=== PATIENT | male | born 1960 | race African-American/Black ===

== ENCOUNTER → 2016-09-23 | Outpatient (CLI) | payer OTHER ==
[~2016-09-23] MED LIST: CHILD ASPIRIN81 M1 PO; CORLANOR5 MG PO; K-DUR10 MEQ PO; LASIX40 MG PO; LISINOPRIL2.5 MG PO; PLAVIX75 MG PO; PROTONIX40 MG PO; TOPROL XL100 MG PO; ULORIC80 MG PO
== END | disposition home or self-care (01) ==
LOC: NUC 07:45
DX: E07.89 Other specified disorders of thyroid (principal); E55.9 Vitamin D deficiency, unspecified
CPT/HCPCS: 78072; A9500; A9512

== ENCOUNTER 2017-02-03 16:13 | Inpatient (IN) | payer OTHER ==
[~2017-02-03] VITALS: Ht 175.3 cm; Wt 95.7 kg
[~2017-02-03 16:13] MED LIST changes: -TOPROL XL100 MG PO; +TOPROL XL200 MG PO
[2017-02-03 16:58] LABS: HEMATOCRIT 45.4 % (38.0-50.0); MCH 28.7 PG (29.0-34.0); MCHC 32.2 G/DL (30.0-36.0); MCV 89.4 FL (86-99); MEAN PLAT.VOLUME 11.6 uM^3 (9.0-12.4); PLATELET COUNT 147 K/uL (156-360); RBC DIS.WIDTH-SD 49.2 % (39-53); RED BLOOD COUNT 5.08 M/uL (4.00-5.50); WHITE BLOOD COUNT 4.5 K/uL (4.1-10.2)
[2017-02-03 17:06] LABS: CHLORIDE 102 mEq/L (99-109); POTASSIUM 5.4 mEq/L (3.7-5.4); SODIUM 136 mEq/L (136-147)
[2017-02-03 17:08] LABS: GLUCOSE 120 mg/dL (70-99)
[2017-02-03 17:10] LABS: ANION GAP 12 MEQ/L (2-14)
[2017-02-03 17:12] LABS: GFR ESTIMATE (CALCULATED) 24 mL/min/ (58.99-99999)
[2017-02-03 17:13] LABS: UREA NITROGEN (BUN) 94 mg/dL (9-23)
[2017-02-03 17:18] LABS: TROP-I INTERPRETATION POSITIVE
[2017-02-03 17:24] LABS: TROPONIN-I 4.45 ng/mL (0.0-0.30)
[2017-02-03] MEDS ORDERED: LASIX40 MG PO (17:42)
[2017-02-03] MEDS ORDERED: CALCITRIOL0.25 MCG PO (17:43)
[2017-02-03] MEDS ORDERED: METOLAZONE2.5 MG PO (17:43)
[2017-02-03] MEDS ORDERED: ATORVASTATIN CA40 MG PO (17:44)
[2017-02-03 18:19] LABS: INTER. NORMALIZED RATIO 1.3; PROTHROMBIN TIME 14.6 SEC (10.2-12.9)
[2017-02-03 18:22] LABS: PTT 32.9 SEC (25-37)
[2017-02-03 19:45] VITALS: BP 98/61
[2017-02-03 20:32] LABS: TOTAL BILIRUBIN 1.6 mg/dL (0.0-1.0)
[2017-02-03 20:33] LABS: ALKALINE PHOSPHATASE 154 IU/L (3-129)
[2017-02-03 22:53] LABS: AMYLASE 106 IU/L (1-118)
[2017-02-03 23:02] LABS: LIPASE 24 U/L (1.0-51.0)
[2017-02-03 23:20] VITALS: BP 99/70
[2017-02-03 23:24] LABS: GAMMA-GT 159 IU/L (4-73)
[2017-02-03 23:31] LABS: SAMPLE HEMOLYSIS CHECK 0; SAMPLE ICTERIC CHECK 0; SAMPLE LIPEMIA CHECK 0
[2017-02-04 00:01] LABS: TROP-I INTERPRETATION POSITIVE
[2017-02-04 00:09] LABS: TROPONIN-I 4.48 ng/mL (0.0-0.30)
[2017-02-04 01:05] LABS: INTER. NORMALIZED RATIO 1.4; PROTHROMBIN TIME 16.3 SEC (10.2-12.9)
[2017-02-04 01:22] LABS: PTT 163.1 SEC (25-37)
[2017-02-04 04:00] VITALS: BP 94/69
[2017-02-04 08:16] LABS: MCHC 31.6 G/DL (30.0-36.0); MCV 91.7 FL (86-99); MEAN PLAT.VOLUME 11.6 uM^3 (9.0-12.4); PLATELET COUNT 131 K/uL (156-360); RBC DIS.WIDTH-CV 15.3 % (11.8-14.6); RBC DIS.WIDTH-SD 51.1 % (39-53); WHITE BLOOD COUNT 4.8 K/uL (4.1-10.2)
[2017-02-04 08:27] LABS: TROP-I INTERPRETATION POSITIVE; TROPONIN-I 4.93 ng/mL (0.0-0.30)
[2017-02-04 08:41] LABS: ANION GAP 11 MEQ/L (2-14); CHLORIDE 103 MEQ/L (99-109); GFR ESTIMATE (CALCULATED) 24 mL/min/ (58.99-99999); GLUCOSE 99 mg/dL (70-99); POTASSIUM 5.9 MEQ/L (3.7-5.4); SAMPLE HEMOLYSIS CHECK 0; SAMPLE ICTERIC CHECK 0; SAMPLE LIPEMIA CHECK 0; SODIUM 138 MEQ/L (136-147); UREA NITROGEN (BUN) 100 mg/dL (9-23)
[2017-02-04 09:04] VITALS: BP 105/65
[2017-02-04 11:30] LABS: ADD MIUA? YES; BILIRUBIN NEGATIVE; BLOOD NEGATIVE; COLOR AMBER ((YELLOW)); GLUCOSE (STRIP) NEGATIVE; KETONES NEGATIVE; LEUKOCYTES NEGATIVE; NITRITE NEGATIVE; PROTEIN (STRIP) 100; SPECIFIC GRAVITY 1.014 (1.000-1.030)
[2017-02-04 11:39] LABS: BACTERIA RARE /HPF; BUDDING YEAST 2+; EPITHELIAL CELLS RARE /HPF; HYALINE CASTS 15-20 /LPF; MUCUS TRACE /LPF; RED BLOOD CELLS 40-50 /HPF (0-5)
[2017-02-04 12:00] VITALS: BP 92/69
[2017-02-04 15:59] LABS: ANION GAP 8 MEQ/L (2-14); CHLORIDE 104 MEQ/L (99-109); POTASSIUM 5.6 MEQ/L (3.7-5.4); SAMPLE HEMOLYSIS CHECK 0; SAMPLE ICTERIC CHECK 0; SAMPLE LIPEMIA CHECK 0; SODIUM 135 MEQ/L (136-147)
[2017-02-04 16:04] LABS: GFR ESTIMATE (CALCULATED) 23 mL/min/ (58.99-99999); GLUCOSE 129 mg/dL (70-99); UREA NITROGEN (BUN) 100 mg/dL (9-23)
[2017-02-04 16:12] LABS: TROP-I INTERPRETATION POSITIVE; TROPONIN-I 3.82 ng/mL (0.0-0.30)
[2017-02-04 16:53] VITALS: BP 101/70
[2017-02-04 19:40] VITALS: BP 141/79
[2017-02-04 20:04] LABS: HEMATOCRIT 43.4 % (38.0-50.0); MCH 29.5 PG (29.0-34.0); MCV 92.1 FL (86-99); MEAN PLAT.VOLUME 11.5 uM^3 (9.0-12.4); PLATELET COUNT 142 K/uL (156-360); RBC DIS.WIDTH-CV 15.5 % (11.8-14.6); RED BLOOD COUNT 4.71 M/uL (4.00-5.50); WHITE BLOOD COUNT 6.4 K/uL (4.1-10.2)
[2017-02-04 20:04] LABS: POINT-OF-CARE METER ID UU14314088
[2017-02-04 20:14] LABS: ANION GAP 10 MEQ/L (2-14); CHLORIDE 101 MEQ/L (99-109); POTASSIUM 5.5 MEQ/L (3.7-5.4); SAMPLE HEMOLYSIS CHECK 0; SAMPLE ICTERIC CHECK 0; SAMPLE LIPEMIA CHECK 0; SODIUM 133 MEQ/L (136-147)
[2017-02-04 20:20] LABS: GFR ESTIMATE (CALCULATED) 23 mL/min/ (58.99-99999); GLUCOSE 127 mg/dL (70-99); UREA NITROGEN (BUN) 100 mg/dL (9-23)
[2017-02-04 20:28] LABS: TROP-I INTERPRETATION POSITIVE
[2017-02-04 23:30] VITALS: BP 108/68
[2017-02-05 05:37] VITALS: BP 108/75
[2017-02-05 06:41] LABS: ANION GAP 10 MEQ/L (2-14); CHLORIDE 104 MEQ/L (99-109); GFR ESTIMATE (CALCULATED) 23 mL/min/ (58.99-99999); GLUCOSE 112 mg/dL (70-99); POTASSIUM 5.8 MEQ/L (3.7-5.4); SAMPLE HEMOLYSIS CHECK 0; SAMPLE ICTERIC CHECK 0; SAMPLE LIPEMIA CHECK 0; SODIUM 136 MEQ/L (136-147)
[2017-02-05 06:43] LABS: UREA NITROGEN (BUN) 104 mg/dL (9-23)
[2017-02-05 06:58] VITALS: BP 105/70
[2017-02-05 08:43] LABS: CREATINE KINASE 166 IU/L (1-294)
[2017-02-05 12:41] LABS: UR CREATININE CONCENTRATION 154.8 MG/DL; URINE TOTAL PROTEIN 57 MG/DL (0-10)
[2017-02-05 15:54] VITALS: BP 109/72
[2017-02-05 19:35] VITALS: BP 107/73
[2017-02-05 22:45] VITALS: BP 120/77
[2017-02-06 03:48] VITALS: BP 110/80
[2017-02-06 06:20] LABS: MCH 28.5 PG (29.0-34.0); MCHC 31.4 G/DL (30.0-36.0); MCV 90.7 FL (86-99); MEAN PLAT.VOLUME 10.5 uM^3 (9.0-12.4); PLATELET COUNT 136 K/uL (156-360); RBC DIS.WIDTH-CV 15.6 % (11.8-14.6); RBC DIS.WIDTH-SD 50.7 % (39-53); RED BLOOD COUNT 4.63 M/uL (4.00-5.50); WHITE BLOOD COUNT 4.7 K/uL (4.1-10.2)
[2017-02-06 06:37] LABS: C3 COMPLEMENT 134 MG/DL (58-170); C4 COMPLEMENT 34 MG/DL (10-40)
[2017-02-06 06:50] LABS: ANION GAP 12 MEQ/L (2-14); CHLORIDE 103 MEQ/L (99-109); GFR ESTIMATE (CALCULATED) 27 mL/min/ (58.99-99999); GLUCOSE 112 mg/dL (70-99); POTASSIUM 5.1 MEQ/L (3.7-5.4); SAMPLE HEMOLYSIS CHECK 0; SAMPLE ICTERIC CHECK 0; SAMPLE LIPEMIA CHECK 0; SODIUM 138 MEQ/L (136-147)
[2017-02-06 06:51] LABS: UREA NITROGEN (BUN) 107 mg/dL (9-23)
[2017-02-06 08:30] VITALS: BP 121/79
[2017-02-06 11:05] LABS: HBSG INDEX 0.19; HPCA INDEX 0.21
[2017-02-06 11:06] LABS: AHBS INDEX 0.44; HEPATITIS B SURFACE ANTIBODY Nonreactive
[2017-02-06 12:11] VITALS: BP 111/76
[2017-02-06 16:40] VITALS: BP 119/79
[2017-02-06 19:55] VITALS: BP 123/79
[2017-02-06 22:14] VITALS: BP 122/83
[2017-02-07 05:02] VITALS: BP 134/78
[2017-02-07 06:39] LABS: TROP-I INTERPRETATION POSITIVE
[2017-02-07 07:12] LABS: ANION GAP 11 MEQ/L (2-14); CHLORIDE 101 MEQ/L (99-109); GFR ESTIMATE (CALCULATED) 34 mL/min/ (58.99-99999); GLUCOSE 144 mg/dL (70-99); POTASSIUM 4.2 MEQ/L (3.7-5.4); SAMPLE HEMOLYSIS CHECK 0; SAMPLE ICTERIC CHECK 0; SAMPLE LIPEMIA CHECK 0; SODIUM 139 MEQ/L (136-147); UREA NITROGEN (BUN) 88 mg/dL (9-23); URIC ACID 7.9 mg/dL (3.1-9.2)
[2017-02-07 07:19] VITALS: BP 130/84
[2017-02-07 11:11] VITALS: BP 126/82
[2017-02-07 15:36] VITALS: BP 126/84
[2017-02-07 18:56] VITALS: BP 126/73
[2017-02-07 22:04] VITALS: BP 122/77
[2017-02-08 04:23] VITALS: BP 132/88
[2017-02-08 06:04] LABS: ANION GAP 9 MEQ/L (2-14); CHLORIDE 101 MEQ/L (99-109); GFR ESTIMATE (CALCULATED) 47 mL/min/ (58.99-99999); GLUCOSE 116 mg/dL (70-99); POTASSIUM 4.3 MEQ/L (3.7-5.4); SAMPLE HEMOLYSIS CHECK 0; SAMPLE ICTERIC CHECK 0; SAMPLE LIPEMIA CHECK 0; SODIUM 139 MEQ/L (136-147); UREA NITROGEN (BUN) 83 mg/dL (9-23)
[2017-02-08 07:25] VITALS: BP 130/85
[2017-02-08] MEDS ORDERED: METOPROLOL SUCC50 MG PO (11:06)
[2017-02-08] MEDS ORDERED: CEFTIN500 MG PO (11:07)
== END 2017-02-08 18:10 | disposition home or self-care (01) | DRG 281 ==
LOC: EME 16:13 → EDOF 16:30 → 4EAST 16:30 → ENRESERV 16:57 → 4EAST 19:38 → ENPENDDIS 02-08 17:00 → 4EAST 02-08 18:10
PROVIDERS: Emergency Medicine; Family Medicine; Hospitalist; Internal Medicine
DX: I21.4 Non-ST elevation (NSTEMI) myocardial infarction (principal); K81.0 Acute cholecystitis; I25.110 Atherosclerotic heart disease of native coronary artery with unstable angina pectoris; N17.9 Acute kidney failure, unspecified; E11.22 Type 2 diabetes mellitus with diabetic chronic kidney disease; I08.1 Rheumatic disorders of both mitral and tricuspid valves; E87.5 Hyperkalemia; I13.2 Hypertensive heart and chronic kidney disease with heart failure and with stage 5 chronic kidney disease, or end stage renal disease; I50.9 Heart failure, unspecified; M10.9 Gout, unspecified; I42.0 Dilated cardiomyopathy; E04.1 Nontoxic single thyroid nodule; N40.0 Benign prostatic hyperplasia without lower urinary tract symptoms; I47.2 Ventricular tachycardia; E55.9 Vitamin D deficiency, unspecified; E78.5 Hyperlipidemia, unspecified; K57.30 Diverticulosis of large intestine without perforation or abscess without bleeding; I27.20 Pulmonary hypertension, unspecified; R80.9 Proteinuria, unspecified; I25.5 Ischemic cardiomyopathy; J43.9 Emphysema, unspecified; R55 Syncope and collapse; F17.210 Nicotine dependence, cigarettes, uncomplicated; D69.6 Thrombocytopenia, unspecified; K21.9 Gastro-esophageal reflux disease without esophagitis; I25.2 Old myocardial infarction; K08.89 Other specified disorders of teeth and supporting structures; F32.9 Major depressive disorder, single episode, unspecified; Z79.02 Long term (current) use of antithrombotics/antiplatelets; Z79.4 Long term (current) use of insulin; Z79.51 Long term (current) use of inhaled steroids; Z79.82 Long term (current) use of aspirin; Z95.5 Presence of coronary angioplasty implant and graft; Z95.810 Presence of automatic (implantable) cardiac defibrillator; Z82.49 Family history of ischemic heart disease and other diseases of the circulatory system; Z79.899 Other long term (current) drug therapy; N18.5 Chronic kidney disease, stage 5
CPT/HCPCS: 71020; 71250; 74176; 76705; 76770; 80048; 80048 91; 80053; 80069; 81003; 82150; 82306; 82436; 82550; 82570; 82948; 82977; 83605; 83690; 83735; 83880; 84100; 84133; 84156; 84300; 84484; 84550; 85027; 85610; 85730; 86160; 86334; 86335; 86706; 86803; 87086; 87340; 93005; 93306; 93975; 94799; 99202; 99281; 99285; J1940; J7030

== ENCOUNTER → 2017-03-12 | Outpatient (CLI) | payer OTHER ==
[~2017-03-12] MED LIST changes: +ATORVASTATIN CA40 MG PO; +CALCITRIOL0.25 MCG PO; +CEFTIN500 MG PO; +METOLAZONE2.5 MG PO; +METOPROLOL SUCC50 MG PO
== END | disposition home or self-care (01) ==
LOC: NUC 13:00
DX: K80.20 Calculus of gallbladder without cholecystitis without obstruction (principal)
CPT/HCPCS: 78227; A9537; J2805

== ENCOUNTER 2017-03-29 16:11 | Emergency (ER) | payer OTHER ==
[~2017-03-29] VITALS: Ht 175.3 cm; Wt 102.6 kg
[2017-03-29 18:12] LABS: HEMOGLOBIN 13.7 G/DL (12.5-16.6); MCH 28.9 PG (29.0-34.0); MCHC 31.9 G/DL (30.0-36.0); MCV 90.7 FL (86-99); PLATELET COUNT 140 K/uL (156-360); RBC DIS.WIDTH-CV 16.2 % (11.8-14.6); RBC DIS.WIDTH-SD 54.1 % (39-53); RED BLOOD COUNT 4.74 M/uL (4.00-5.50); WHITE BLOOD COUNT 4.3 K/uL (4.1-10.2)
[2017-03-29 18:22] LABS: CHLORIDE 103 mEq/L (99-109); POTASSIUM 4.7 mEq/L (3.7-5.4); SODIUM 140 mEq/L (136-147)
[2017-03-29 18:24] LABS: GLUCOSE 114 mg/dL (70-99)
[2017-03-29 18:28] LABS: CREATININE 2.2 mg/dL (0.6-1.3); GFR ESTIMATE (CALCULATED) 40 mL/min/ (58.99-99999); UREA NITROGEN (BUN) 93 mg/dL (9-23)
[2017-03-29 21:40] VITALS: BP 102/78
== END 2017-03-29 22:01 | disposition home or self-care (01) ==
LOC: EME 16:11
PROVIDERS: Nurse Practitioner Family
DX: I87.2 Venous insufficiency (chronic) (peripheral) (principal); J81.1 Chronic pulmonary edema; K21.9 Gastro-esophageal reflux disease without esophagitis; J44.9 Chronic obstructive pulmonary disease, unspecified; I10 Essential (primary) hypertension; E11.9 Type 2 diabetes mellitus without complications; I25.2 Old myocardial infarction; Z79.82 Long term (current) use of aspirin; Z79.02 Long term (current) use of antithrombotics/antiplatelets; Z87.891 Personal history of nicotine dependence; Z87.448 Personal history of other diseases of urinary system; Z88.8 Allergy status to other drugs, medicaments and biological substances
CPT/HCPCS: 71046; 80048; 83880; 85027; 93005; 99281; 99285; J0696